=== PATIENT | female | born 1940 | race Caucasian/White ===

== ENCOUNTER 2020-08-16 20:51 | Outpatient (REF) | payer MEDICARE, OTHER, SELFPAY ==
[2020-08-16 21:28] LABS: Abs Immature Grans 0.03 10^3/uL (0.0-0.06); Absolute Basophil Count 0.01 10^3/uL (0.0-0.2); Absolute Eosinophil Count 0.01 10^3/uL (0.0-0.7); Absolute Lymphocyte Count 2.46 10^3/uL (1.2-3.4); Absolute Monocyte Count 0.33 10^3/uL (0.1-0.8); Absolute Neutrophil Count 1.03 10^3/uL (1.2-6.7); Basophils % 0.3; Eosinophils % 0.3; HCT 40.4 % (36.0-46.0); HGB 13.2 g/dL (11.2-15.7); Immature Grans % 0.8; Lymphocytes % 63.6; MCHC 32.7 % (32.0-36.0); MCV 97.8 fL (80-95); MPV 11.6 fL (8.0-11.0); Monocytes % 8.5; Neutrophils % 26.5; Nucleated RBC 0 %; Platelet Count 185 10^3/uL (130-400); RBC 4.13 10^6/uL (3.93-5.22); RDW 11.8 % (11.7-14.6); RDW-SD 42.3 fL; WBC 3.87 10^3/uL (4.4-10.8)
[2020-08-16 21:46] LABS: FREE T4 0.77 ng/dL (0.76-1.46); TSH 3.74 uIU/mL (0.36-3.74)
== END 2020-08-16 20:52 | disposition home or self-care (01) ==
LOC: LBN 20:51
PROVIDERS: Visit Provider Physician Assistant
DX: E53.8 Deficiency of other specified B group vitamins (principal); E03.9 Hypothyroidism, unspecified
CPT/HCPCS: 84439; 84443; 85025

== ENCOUNTER 2020-08-17 11:58 | Outpatient (CLI) | payer MEDICARE, OTHER, SELFPAY ==
--- NOTE | 2020-08-17 10:45 | DI.RAD_ITS ---
Exam(s) XR RIBS RT W PA LAT CHEST CLINICAL HISTORY: right anterior inferior rib pain, and c/o swelling M89.9 DISORDER OF BONE. COMPARISON: No exams were available for comparison FINDINGS: LUNGS:Mild chronic fibrotic changes, otherwise clear. No pleural abnormality seen. HEART: Normal. MEDIASTINUM: Normal. BONES: No displaced rib fracture is seen. No bony destructive lesion is seen. Biconvex thoracolumbar scoliosis. No compression fracture. Degenerative changes both shoulders. IMPRESSION: 1. Unremarkable radiographic appearance of the right ribs. 2. No acute pulmonary findings.
== END 2020-08-17 12:18 ==
PROVIDERS: Visit Provider Physician Assistant
DX: R07.81 Pleurodynia (principal); R22.2 Localized swelling, mass and lump, trunk; M89.9 Disorder of bone, unspecified
CPT/HCPCS: 71046; 71100

== ENCOUNTER 2020-09-25 03:57 | Outpatient (CLI) | payer MEDICARE, OTHER, SELFPAY ==
[2020-09-25 09:35] LABS: ALT 23 U/L (14-59); AST 15 U/L (15-37); Albumin 4.1 g/dL (3.4-5.0); Alkaline Phosphatase 40 U/L (46-116); Anion Gap 8.1 mmol/L (3-11); BUN 17 mg/dL (7-18); Bilirubin, Total 0.5 mg/dL (0.2-1.0); CO2 28.9 mmol/L (21.0-32.0); CREATININE 0.9 mg/dL (0.55-1.02); Calculated LDL 131 mg/dL (<100); Chloride 105 mmol/L (98-107); Cholesterol 232 mg/dL (<200); Glucose 99 mg/dL (74-106); HDL Cholesterol 89 mg/dL (40-60); Potassium 4.1 mmol/L (3.5-5.1); Sodium 142 mmol/L (136-145); TSH (W/Ref FT4) 4.47 uIU/mL (0.36-3.74); Total Protein 7.3 g/dL (6.4-8.2); Triglyceride 64 mg/dL (<150)
[2020-09-25 09:54] LABS: FREE T4 0.81 ng/dL (0.76-1.46)
== END 2020-09-25 03:58 | disposition home or self-care (01) ==
DX: E30.9 Disorder of puberty, unspecified (principal); G47.00 Insomnia, unspecified
CPT/HCPCS: 36415; 80053; 80061; 84439; 84443

== ENCOUNTER 2020-10-17 01:10 | Outpatient (CLI) | payer MEDICARE, OTHER, SELFPAY ==
--- NOTE | 2020-10-17 07:00 | DI.US_ITS ---
Exam(s) US ABDOMEN EXAM: US ABDOMEN CLINICAL HISTORY: RUQ abdominal discomfort, R10.11 TECHNIQUE: Ultrasound of complete upper abdomen performed using standard protocol. COMPARISON: No exams were available for comparison FINDINGS: There is no ascites evident. LIVER: There are no hepatic lesions evident nor obvious dilatation of intrahepatic ducts. GALLBLADDER/BILIARY: There are no gallstones. There is mild sludge. No gallbladder wall edema nor p ericholecystic fluid. The common hepatic duct isnot dilated, measuring 3-4mm at the level of kymberly hepatis. PANCREAS: There is no evidence of pancreatic mass nor dilatation of the pancreatic duct. SPLEEN: The spleen is not enlarged and there are no intrasplenic lesions evident. KIDNEYS:Kidneys exhibit normal size with no evidence of solid mass, calculus, nor hydronephrosis. The re is a parapelvic cyst in the right kidney which measures 2.3 x 1.8 x 1.9 cm. ABDOMINAL AORTA: Atherosclerotic but without aneurysmal dilatation. IVC: Normal diameter where visualized. IMPRESSION: 1. Mild sludge in the gallbladder but no shadowing gallstones. No gallbladder wall edema. Biliary tree is not dilated 2. Parapelvic cyst in the right kidney. No solid renal masses. No hydronephrosis 3. There is no ascites. DATA REPOSITORY:
--- NOTE | 2020-10-17 07:00 | DI.MAMMO_ITS ---
Exam(s) MAMMO SCREENING EXAM: MAMMO SCREENING CLINICAL HISTORY: screening, Z12.39. TECHNIQUE: Bilateral full field digital CC and MLO mammographic images were obtained with 3D tomosyn thesis and utilizing computer aided detection (CAD). COMPARISON: Prior outside mammogram performed August 2019 FINDINGS: There are no CAD designations There are no new spiculated masses nor malignant appearing microcalcification groups. There is no significant architectural distortion nor skin thickening-retraction. IMPRESSION: No radiographic evidence of malignancy. No significant change compared to the prior outside mammogram of August 2019 BI-RADS Category 1 - Negative Breast Density - Category C - Heterogeneously dense Breast density Category C or D implies that the patient has dense breast tissue. Dense breast tissue can make it harder to find cancer on a mammogram. Dense breast tissue is also associated with an incr eased risk of breast cancer. This information about the result of the mammogram report was provided to the patient to raise their awareness. Use this report when you speak with the patient about their risks for breast cancer, which includes their family history. At that time, you may recommend additional screening tests (Ultrasoun d or MRI) as these tests may add significant information. A negative radiographic report should not delay biopsy if a dominant or clinically suspicious mass is present. Up to ten percent of cancers are not identified on mammography. A negative report may reinforce clinical impression. Adenosis and dense breasts may obscure an underlying neoplasm. False positive reports average 6 to 10%. Patient will receive a letter notifying them of these results.
== END 2020-10-17 01:30 ==
DX: Z12.31 Encounter for screening mammogram for malignant neoplasm of breast (principal); R10.11 Right upper quadrant pain; N28.1 Cyst of kidney, acquired
CPT/HCPCS: 77063; 77067; 76700

== ENCOUNTER 2021-06-17 13:03 | Emergency (ER) | payer MEDICARE, OTHER, SELFPAY ==
[2021-06-17 13:18] VITALS: PULSE 71; RESP 16; TEMP 36.4; O2SAT 97
[2021-06-17 13:25] VITALS: BP 1212/76; PULSE 68; RESP 16; TEMP 36.6; O2SAT 97
--- NOTE | 2021-06-17 13:30 | RT.EKG_ITS ---
APPROVED REPORT Exam: Resting ECG Reason for Exam: shortness of breath Patient Location: E HR:63 bpm ECG Measurements Heart Rate 63 AXIS MA 189 P 44 QRSd 148 QRS 31 QT 440 T 60 QTc 450 Conclusion Sinus rhythm...normal P axis, V-rate 60- 99 Left bundle branch block...QRSd>120, broad/notched R
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
[2021-06-17 13:50] VITALS: RESP 16
[2021-06-17 13:51] LABS: BE (Venous) 5 mmol/L (-2-3); HCO3 (Venous) 30 mmol/L (23-28); O2 Sat (Venous) 47 %; TCO2 (Venous) 27 mmol/L (24-29); pCO2 (Venous) 48 mmHg (41-51); pO2 (Venous) 26 mmHg
[2021-06-17 13:52] LABS: Abs Immature Grans 0.05 10^3/uL (0.0-0.06); Absolute Basophil Count 0.01 10^3/uL (0.0-0.2); Absolute Lymphocyte Count 2.38 10^3/uL (1.2-3.4); Absolute Monocyte Count 0.31 10^3/uL (0.1-0.8); Absolute Neutrophil Count 1.05 10^3/uL (1.2-6.7); Basophils % 0.3; HCT 37.9 % (36.0-46.0); HGB 12.5 g/dL (11.2-15.7); Immature Grans % 1.3; Lymphocytes % 62.6; MCH 31.8 pg (27.0-33.0); MCV 96.4 fL (80-95); MPV 10.2 fL (8.0-11.0); Monocytes % 8.2; Neutrophils % 27.6; Platelet Count 181 10^3/uL (130-400); RBC 3.93 10^6/uL (3.93-5.22); RDW 11.9 % (11.7-14.6); RDW-SD 42.8 fL
--- NOTE | 2021-06-17 13:59 | DI.RAD_ITS ---
Exam(s) XR CHEST 2V PA LATERAL EXAM: XR CHEST 2V PA LATERAL CLINICAL HISTORY: shortness of breath TECHNIQUE: 2D digital imaging was performed of the chest. Two images were obtained. PA and lateral views were obtained. COMPARISON: CR XR RIBS RT W PA LAT CHEST from 08/17/2020 FINDINGS: MEDIASTINUM: Normal. HEART: Normal. PULMONARY VASCULATURE: Normal. LUNGS: The lungs appear hyperinflated suggesting underlying COPD. Mild fibrotic changes are seen in the lungs. PLEURAL SPACE: No pleural effusion or pneumothorax. BONE:Within normal limits for the patient's age. OTHER FINDINGS:Normal. IMPRESSION: No acute pulmonary findings. DATA REPOSITORY: RADIATION DOSE DELIVERED:
[2021-06-17 14:15] LABS: ALT 17 U/L (14-59); AST 16 U/L (15-37); Albumin 3.9 g/dL (3.4-5.0); Alkaline Phosphatase 45 U/L (46-116); Anion Gap 5.3 mmol/L (3-11); BUN 24 mg/dL (7-18); Bilirubin, Total 0.5 mg/dL (0.2-1.0); CO2 29.7 mmol/L (21.0-32.0); CREATININE 1.2 mg/dL (0.55-1.02); Calcium 8.8 mg/dL (8.5-10.1); Chloride 104 mmol/L (98-107); Estimated GFR 43.34 (mL/min/1.73m2); Glucose 105 mg/dL (74-106); Magnesium 2.2 mg/dL (1.8-2.4); NT-proBNP 56 pg/mL (<300); Potassium 3.9 mmol/L (3.5-5.1); Sodium 139 mmol/L (136-145); TSH (W/Ref FT4) 1.98 uIU/mL (0.36-3.74); Total Protein 7.2 g/dL (6.4-8.2); Troponin I < 50 ng/L (<or=60)
[2021-06-17 14:36] VITALS: PULSE 61; RESP 16; O2SAT 98
[2021-06-17 14:45] VITALS: BP 114/60
== END 2021-06-17 14:44 | disposition home or self-care (01) ==
PROVIDERS: Emergency Provider Emergency Medicine
DX: R06.02 Shortness of breath (principal); R42 Dizziness and giddiness; E03.9 Hypothyroidism, unspecified
CPT/HCPCS: 80053; 82805; 93005; 99284; 71046; 83735; 83880; 84443; 84484; 85025; 93010; 99283

== ENCOUNTER 2021-09-19 03:09 | Outpatient (CLI) | payer MEDICARE, OTHER, SELFPAY ==
[2021-09-19 08:31] LABS: ALT 31 U/L (14-59); AST 15 U/L (15-37); Albumin 4.2 g/dL (3.4-5.0); Alkaline Phosphatase 50 U/L (46-116); BUN 16 mg/dL (7-18); Bilirubin, Total 0.4 mg/dL (0.2-1.0); CREATININE 0.9 mg/dL (0.55-1.02); Calcium 9.3 mg/dL (8.5-10.1); Calculated LDL 128 mg/dL (<100); Chloride 105 mmol/L (98-107); Cholesterol 225 mg/dL (<200); Glucose 103 mg/dL (74-106); HDL Cholesterol 84 mg/dL (40-60); Sodium 141 mmol/L (136-145); TSH (W/Ref FT4) 1.73 uIU/mL (0.36-3.74); Total Protein 7.8 g/dL (6.4-8.2); Triglyceride 68 mg/dL (<150)
== END 2021-09-19 03:10 | disposition home or self-care (01) ==
LOC: LBO 03:09
DX: E78.5 Hyperlipidemia, unspecified (principal); F32.9 Major depressive disorder, single episode, unspecified; F41.9 Anxiety disorder, unspecified; R06.02 Shortness of breath; R42 Dizziness and giddiness; E03.9 Hypothyroidism, unspecified
CPT/HCPCS: 36415; 80053; 80061; 84443

== ENCOUNTER → 2021-10-01 00:32 | Outpatient (CLI) | payer MEDICARE, OTHER, SELFPAY ==
--- NOTE | 2021-10-01 07:45 | DI.NM_ITS ---
APPROVED REPORT Exam: Pharmacologic Patient Location: Out-Patient Room/Bed: Stress Nurse: Ryanne Mcqueen RN Ordering Provider:PHILIPP BRAVO, Contact Number: [phone] BMI: 20.59 Baseline Rhythm: Sinus Bradycardia, LBBB Indications: mild dyspnea on exertion, balance problem, lightheadedness, known BBB Medical History Medical History: LBBB, hyperglycemia, HLD, anxiety, DE OLIVEIRA, stroke, hypothyroidism, glaucoma Cardiac Medications: Magnesium Oxide, Levothyroxine Allergies: Epinephrine Cardiac Risk Factors: Family history, HLD Previous Cardiac Procedures: none Pretest Chest Pain Characteristics: none Exercise History: Physically active Physical Disabilities: None Lung Sounds: Clear to air bilaterally Heart Sounds: s1/s2 Stress Test Details Rest Stress HR Max Heart Rate (APMHR): 141.355049 bpm Target HR (85% APMHR): 119.974841 bpm BP ECG Clinical Rate Pressure Product: 0 Stress ECG Conclusion 1. The resting electrocardiogram showed a left bundle branch block. 2. Patient underwent a combination of testing with low-level exercise and pharmacologic stress with r egadenoson 3. The electrocardiographic portion of the test was nondiagnostic due to resting EKG abnormalities 4. Peak heart rate achieved was 90% of predicted for age 5. See MPI report Stress Test Summary STAGE HR BP SpO2 Symptoms NOTES Supine 58 144/72 Standing 65 148/78 1 min post Lexiscan injection 126 148/78 3 min post Lexiscan injection 128 144/62 6 min post Lexiscan injection 102 152/60 9 min post Lexiscan injection 88 122/64 Patient tolerated test well. MPI Conclusion Myocardial perfusion is normal without evidence of ischemia or prior infarction EF 70%, normal wall motion Radiologist Interpretation Radiologist agrees with Movie Shot Cameraman's Interpretation. Radiologist Interpretation by: Rowan Romero MD Interpretation Date/Time: 10/01/2021 16:35:40
[2021-10-01] MEDS: Regadenoson 0.4 MG/5 ML SYR IVP (13:35)
== END ==
DX: I44.7 Left bundle-branch block, unspecified (principal); R06.09 Other forms of dyspnea; R26.89 Other abnormalities of gait and mobility; R42 Dizziness and giddiness
CPT/HCPCS: 78452; 93016; 93018; 93017; J2785

== ENCOUNTER → 2021-10-18 00:04 | Outpatient (CLI) | payer MEDICARE, OTHER, SELFPAY ==
--- NOTE | 2021-10-18 07:15 | DI.MAMMO_ITS ---
Exam(s) MAMMO SCREENING EXAM: MAMMO SCREENING CLINICAL HISTORY: screening,z12.39. TECHNIQUE: Bilateral full field digital CC and MLO mammographic images were obtained with 3D tomosyn thesis and utilizing computer aided detection (CAD). COMPARISON: Prior mammograms were reviewed, the most recent being . FINDINGS: There are no new spiculated masses nor malignant appearing microcalcification groups. There is no significant architectural distortion nor skin thickening-retraction. IMPRESSION: No radiographic evidence of malignancy. BI-RADS Category 1 - Negative Breast Density - Category C - Heterogeneously dense Breast density Category C or D implies that the patient has dense breast tissue. Dense breast tissue can make it harder to find cancer on a mammogram. Dense breast tissue is also associated with an incr eased risk of breast cancer. This information about the result of the mammogram report was provided to the patient to raise their awareness. Use this report when you speak with the patient about their risks for breast cancer, which includes their family history. At that time, you may recommend additional screening tests (Ultrasoun d or MRI) as these tests may add significant information. A negative radiographic report should not delay biopsy if a dominant or clinically suspicious mass is present. Up to ten percent of cancers are not identified on mammography. A negative report may reinforce clinical impression. Adenosis and dense breasts may obscure an underlying neoplasm. False positive reports average 6 to 10%. Patient will receive a letter notifying them of these results.
== END ==
DX: Z12.31 Encounter for screening mammogram for malignant neoplasm of breast (principal)
CPT/HCPCS: 77063; 77067

== ENCOUNTER 2022-05-13 18:13 | Outpatient (CLI) | payer MEDICARE, OTHER, SELFPAY ==
--- NOTE | 2022-05-13 16:00 | DI.RAD_ITS ---
Exam(s) XR CERVICAL SPINE COMP 4-5V EXAM: XR CERVICAL SPINE COMP 4-5V CLINICAL HISTORY: pain M54.2 CERVICALGIA R26.81 UNSTEADINESS ON FEET. TECHNIQUE: 2D digital imaging was performed. Six images were obtained. AP, odontoid, lateral and yue ateral oblique images were obtained. COMPARISON: No exams were available for comparison FINDINGS: The odontoid is intact. The lateral masses are well aligned. There is normal alignment of the cervi cassandra spine. Disc space narrowing and endplate osteophytes are seen at C5-6 and C6-C7. No acute fractur e or subluxation is present. There is mild narrowing of the right C5-C6 neural foramen. The cervical thoracic junction is well maintained. The prevertebral soft tissues are unremarkable. Lung apices a re clear. IMPRESSION: Mild cervical spondylosis. DATA REPOSITORY: RADIATION DOSE DELIVERED:
== END 2022-05-13 18:33 ==
LOC: DI 18:14
PROVIDERS: PCP Nurse Practitioner Family; Visit Provider Nurse Practitioner Family
DX: R26.81 Unsteadiness on feet (principal); M50.322 Other cervical disc degeneration at C5-C6 level; M50.323 Other cervical disc degeneration at C6-C7 level; M47.812 Spondylosis without myelopathy or radiculopathy, cervical region
CPT/HCPCS: 72050

== ENCOUNTER 2022-06-13 00:37 | Outpatient (CLI) | payer MEDICARE, OTHER, SELFPAY ==
--- NOTE | 2022-06-13 06:45 | DI.MRI_ITS ---
Exam(s) MR CERVICAL SPINE WO EXAM: MR CERVICAL SPINE WO CLINICAL HISTORY: intermittent neck pain, unsteadiness, worsening,r26.81,m54.2 TECHNIQUE: Multiplanar multisequence MRI of the cervical spine was performed without intravenous con trast. COMPARISON: CR XR CERVICAL SPINE COMP 4-5V from 05/13/2022 FINDINGS: CERVICOMEDULLARY JUNCTION: Intact with no evidence of cerebellar tonsillar ectopia. No obvious abnor mality of the odontoid process. No evidence of Chiari 1 malformation. CERVICAL SPINAL CORD: There is no abnormal signal in the cervical spinal cord and no evidence of foca l cord atrophy nor focal cord swelling. OSSEOUS:There are no cervical fractures evident. No significant osseous lesions in the cervical vert ebrae. There are mild Modic type 1 sub endplate marrow edema changes on the inferior aspect of C5. INDIVIDUAL LEVELS: C2-3: No disc herniation nor central canal stenosis. No foraminal stenosis. Mild facet joint degener ative change on the right side. Left facet joint unremarkable. C3-4: No disc herniation nor central canal stenosis.Right facet joint unremarkable. Mild degenerativ e changes in the left facet joint. No obvious foraminal stenosis. C4-5: Normal disc height but there is a small central subligamentous disc protrusion which extends po steriorly 2 millimeters and is 5 millimeters wide. This slightly indents the thecal sac and slightly indents the anterior spinal cord. There is no abnormal signal in the cord at this level. Central c anal dimensions are lower normal. Disc protrusion does not extend into the exiting neural foramina w hich are patent. There are no prominent degenerative changes in the facet joints at this level. C5-6: This level exhibits chronic disc space narrowing and anterior osseous lipping. Modic type 1 mi ld sub endplate marrow edema changes in lower C5. No evidence of discitis. Small central subligamen tous disc bulge also noted at this level. There is mild central spinal canal stenosis. AP measureme nt of the canal is 8 mm. There are small bilateral Luschka joint osteophytes. However no prominent foraminal stenosis. Minimal facet degenerative changes at this level. C6-7: This level also exhibits chronic disc space narrowing and anterior osteophytes. There is subli gamentous annular bulging also noted at this level which flattens the thecal sac and contacts the spi nal cord. No abnormal signal in the cord. Mild central canal stenosis. No Luschka joint osteophyte s evident at this level. No significant foraminal stenosis. No facet arthropathy noted at this leve l. C7-T1: No disc herniation nor central canal stenosis. No facet arthropathy.No foraminal stenosis. IMPRESSION: 1. Chronic degenerative disc disease changes at C 5-6 and C6-7 levels with findings as described abov e at these levels. 2. There is also a small central subligamentous disc protrusion at C4-5 which slightly indents the th ecal sac and anterior aspect of the spinal cord at this level. 3. There is mild multilevel central spinal canal stenosis at these 3 levels. Small Luschka joint ost eophytes C5-6 level. There is no prominent foraminal stenosis on either side in the cervical spine. 4. There is no abnormal signal in the spinal cord nor evidence of cord swelling nor cord atrophy. DATA REPOSITORY:
--- NOTE | 2022-06-13 06:45 | DI.MRI_ITS ---
Exam(s) MR BRAIN WO EXAM: MR BRAIN WO CLINICAL HISTORY: acutely worse unsteadiness,h/o stroke,r26.81,z86.73 TECHNIQUE: Multiplanar multisequence MRI of the brain was performed. COMPARISON: No prior brain imaging studies in our PACS for comparison. FINDINGS: CEREBRAL PARENCHYMA: There is no evidence of intracranial hemorrhage, mass effect, or shift of midline structures. There are no extra-axial fluid collections. Ventricles are not enlarged or shifted. There is no significant focal signal abnormality in the cerebellar hemispheres nor within the nishant, m idbrain, and thalami. There is no abnormal signal abnormality in the periventricular white matter. On diffusion imaging there is mild increased signal in the anterior aspect of the midbrain between th e peduncles but without corresponding hypointensity on the ADC map and therefore questionable signifi cance with respect to ischemia. Amount of involutional change-atrophy is minimal. PITUITARY GLAND: No mass nor parasellar abnormality. No obvious abnormality in the cavernous sinuses. FLOW VOIDS: The expected flow void are noted. No evidence of obvious aneurysm nor obvious vascular ma lformation. PARANASAL SINUSES: None post inflammatory retention cyst in the posterior aspect of the left maxillar y sinus. No fluid level. ORBITS: No obvious findings. IMPRESSION: Minimal findings as described above. Also, no evidence to suggest prior infarct, as stated on the re quisition. DATA REPOSITORY:
== END 2022-06-13 00:57 ==
LOC: DI 00:38
PROVIDERS: PCP Nurse Practitioner Family; Visit Provider Nurse Practitioner Family
DX: M54.2 Cervicalgia (principal); R26.81 Unsteadiness on feet; Z86.73 Personal history of transient ischemic attack (TIA), and cerebral infarction without residual deficits
CPT/HCPCS: 70551; 72141

== ENCOUNTER 2022-07-14 07:15 | Outpatient (REF) | payer MEDICARE, OTHER, SELFPAY ==
[2022-07-17 13:28] LABS: Helicobacter pylori Ag, Feces Negative (Negative)
== END 2022-07-14 07:16 | disposition home or self-care (01) ==
LOC: LBN 07:15
PROVIDERS: PCP Nurse Practitioner Family; Visit Provider Nurse Practitioner Family
DX: R10.13 Epigastric pain (principal)
CPT/HCPCS: 87338

== ENCOUNTER → 2022-07-29 11:04 | Outpatient (BNVA) | payer MEDICARE, OTHER, SELFPAY | PROVIDERS: PCP Nurse Practitioner Family; Referring Provider Nurse Practitioner Family; Visit Provider Surgery | DX: K21.9 Gastro-esophageal reflux disease without esophagitis (principal) | CPT/HCPCS: 99213 ==

== ENCOUNTER 2022-08-06 06:50 | Day surgery (SDC) | payer MEDICARE, OTHER, SELFPAY ==
--- NOTE | 2022-08-06 06:24 | W.PM.PROGNOT ---
Date of Service Date of service: 08/06/22 Time of Service: 07:13 Assessment and Plan Assessment and plan (1) GERD (gastroesophageal reflux disease): Status: Chronic Assessment and plan: Ricky is doing well today. She has not had any new symptoms. She continues to have some early satiety although her reflux seems to be better controlled on the Pepcid 40 mg at nighttime. She has not had any new upper respiratory symptoms. We again reviewed the risks, benefits and complications of the procedure. She did not have any new questions or concerns and wished to proceed. Proceed with upper endoscopy under sedation with biopsies. Subjective Subjective Interval history since last seen: I saw Saranya in same-day surgery prior to her procedure today. She is doing well. She has not had any new complaints. She stopped the Carafate about a week ago and so far her symptoms have been controlled with the Pepcid 40 mg at nighttime. She still feels some early satiety. Her weight has been stable at 116 to 118 pounds. She has not had any upper respiratory symptoms since I saw her. Exam Const General: healthy appearing, comfortable and no acute distress Nutritional Appearance: thin Orientation: alert and oriented x3 HENMT Head: normocephalic and atraumatic Resp Effort & Inspection: normal respiratory effort Auscultation: clear to auscultation bilaterally Cardio Rate: regular rate Rhythm: regular rhythm GI Palpation: soft, no hepatosplenomegaly and nontender Time Spent with Patient Time Spent with Patient: <25 minutes Time was spent: preparing to see the patient(eg.review tests) and counseling the patient
--- NOTE | 2022-08-06 06:26 | ENDO_ITS ---
Date of service: 08/06/22 Time of Service: 09:25 Endoscopy Report DATE OF PROCEDURE: 08/06/22 PRE-OP DIAGNOSIS: Heart Burn, GERD POST-OP DIAGNOSIS: same PROCEDURE: EGD with biopsies SURGEON: Mora Anderson ANESTHESIA TYPE: General:No Airway ESTIMATED BLOOD LOSS: 3 PATHOLOGY: other (Bx of antrum, cardi and GE junction) COMPLICATIONS: None DISPOSITION: same day INDICATIONS: Donna is a pleasant 82-year-old female who has been having increase in reflux and heartburn type symptoms. She was started on Pepcid 40 mg daily as well as Carafate. She has now finished the Carafate and is doing somewhat better. She states that she has had some worsening symptoms on and off for many years. She is otherwise quite healthy 82-year-old who still runs at least 4 miles a day. I reviewed the risks, benefits and complications again in same-day surgery prior to the procedure. The patient did not have any questions understood the complication risk and wished to proceed. FINDINGS: There is moderate inflammation noted in the GE junction with some irregularity of the Z-line. No ulcerations were noted. No inflammation in the stomach. No abnormal polyps. PROCEDURE DESCRIPTION: After informed consent was obtained the patient was take to the procedure room and placed in a supine position. Monitors were applied and a time out was done. The patients name, date of , procedure type, allergies to medications and metal in their body was reviewed. A bite block was placed and the patient was sedated. Once sedated and comfortable the gastroscope was advanced through the oropharynx which was grossly normal into the esophagus. The proximal and mid- esophagus were normal. In the distal esophagus there was moderate inflammation noted. The scope was advanced into the stomach and through the pylorus into the 3rd portion of the duodenum. The duodenum was noted to be normal. The scope was retracted back into the stomach. No inflammation or ulcers were noted. Biopsies were done to rule out H. pylori. The scope was retroflexed. The cardia and fundus were noted to be normal. There was no hiatal hernia noted. The scope was retracted back into the esophagus and biopsies were done of the GE junction to rule out Archibald's. The Z line was irregular. There is an area that was no more than a centimeter long starting from the GE junction up. The GE junction was at 40 cm. The scope was removed and the patient was woken up and taken back to [facility] in stable condition. Follow up: I will increase the patient's Pepcid to 40 mg twice daily short-term for about 30 days and then come back down to 40 mg daily. I will give her a low acid diet to follow for the next couple of weeks until she sees me in the o ffice.
--- NOTE | 2022-08-06 06:28 | W.PM.DSUDISC ---
Date of service: 08/06/22 Time of Service: 09:18 Discharge Plan Disposition Patient Disposition: Home Condition: Stable Discharge Details Reason For Visit: Heart Burn, GERD Attending Provider: Mora Anderson Primary Care Provider: Jose J Maddox Home Meds and New Rx's Prescriptions: New famotidine 40 mg tablet 40 mg PO BID Qty: 60 0RF Continued calcium carbonate-vitamin D3 600 mg(1,500mg) -400 unit tablet 1 tab PO DAILY ibuprofen 200 mg capsule 200 - 400 mg PO Q6H PRN acetaminophen 500 mg capsule 500 mg PO Q6H PRN cyanocobalamin (vitamin B-12) 1,000 mcg capsule 1,000 mcg PO DAILY PRN hjrrhheu-llcmziw-yvwi-lutein Tablet 1 tab PO DAILY latanoprost 0.005 % drops 1 drp ophthalmic (eye) DAILY Patient Comments: INSTILL 1 DROP IN BOTH EYES AT BEDTIME (DME) Aerochamber MV Spacer See Rx Instructions .Route Qty: 1 0RF Rx Instructions: As directed levothyroxine 75 mcg tablet 75 mcg PO DAILY Qty: 90 4RF Discontinued famotidine 40 mg tablet 40 mg PO DAILY Qty: 90 0RF sucralfate 1 gram tablet 1 g PO QACHS Qty: 120 0RF Discharge Instructions Instructions: Diet for Stomach Ulcers and Gastritis (ED), GERD (Gastroesophageal Reflux Disease) (DC) Additional Instructions: Findings: inflammation at the junction of the esophagus and stomach, consistent with reflux medications: Please increase the Pepcid to 2 x a day Follow up: 2 weeks Please call if you develop: fevers >101.5 Nausea or Vomiting Abdominal pain that is not transient Rectal bleeding that is more then a tbsp A hard abdomen and inability to pass gas Shortness of breath DAY SURGERY UNIT POST ENDOSCOPY INSTRUCTIONS Instructions for everyone who is given Anesthesia: For your safety, please do the following for the next 24 Hours: a. Do not drive or operate dangerous equipment b. Do not drink alcohol beverages or use any recreational drugs for the first 24 hours or while taking pain medications. The medications in your body may have a reaction that can be dangerous. c. Do not make any important decisions or sign any important papers 1. Generally there are no restrictions on your activity after a day or so has gone by, but you may feel a bit fatigued for a few days. 2. After you arrive home you may have a light meal and return to a normal diet as you can tolerate it without feeling sick to your stomach. 3. After surgery, you may feel pain or discomfort. This should be only transient, but if it persists please contact your doctor. 4. If there are any questions regarding the findings of your procedure, please feel free to contact your doctor. 6. If you are unable to contact your doctor with a problem, contact the hospital at [phone]. 7. Continue all your regular medications unless directed otherwise. I understand the above instructions and have no questions. Signature of Patient or Responsible Adult Escort Date/Time Name of Responsible Adult Escort Signature of Nurse Date/Time Activity:: Activity as Tolerated Diet:: low acid Discharge Orders Discharge Orders: Discharge Order (Routine); Ordered 08/06/22 Ordered By: Mora Anderson DS: Diagnosis Discharge Diagnosis (1) GERD (gastroesophageal reflux disease): Status: Chronic Asessment and Plan: Patient is seen and examined after their endoscopy. Patient has no sore throat. They have been able to tolerate liquids. They do not have any Nausea or Vomiting. They are not having any chest pain or shortness of breath. They have been able to pass gas and are not having any abdominal pain or distention. they have not vomited any blood. The vital signs have been stable-see nursing notes. We discussed findings on their endoscopy We reviewed the importance of lifestyle modifications- see diet recommendations We reviewed any new medications that the patient may be prescribed- see medicine reconciliation. Patient will either be sent a letter with the biopsy results or follow up in the office- see discharge instructions Patient was given explicit instructions for emergency follow up post endoscopy- see discharge instructions Patient verbalized understanding and was discharged in stable and satisfactory condition. See nursing notes.
[2022-08-06 07:15] VITALS: BP 112/64; PULSE 69; RESP 17; TEMP 36.6; O2SAT 98
[2022-08-06] MEDS: Lactated Ringers 1,000 ML 80 ML IV (07:26)
--- NOTE | 2022-08-06 07:47 | ANES.PREOP_ITS ---
General Info Date of Service Date Performed: 08/06/22 Height: 5 ft 4 in Weight: 52.9 kg Body Mass Index (BMI): 20.0 Surgical Procedure: Operation Date: 08/06/22 08:05 Proposed Procedure Side Surgeon p Gastroscopy Mora Anderson MD Meds Allergies and Home Medications Allergies Allergy/AdvReac Type Severity Reaction Status Date / Time epinephrine AdvReac Intermediate Tachycardia Verified 08/06/22 07:09 versed Allergy Severe Uncoded 08/06/22 07:09 Home Medication Medication Instructions Recorded acetaminophen 500 mg capsule 500 mg PO Q6H PRN 03/06/20 calcium carbonate 600 mg-vitamin 1 tab PO DAILY 03/06/20 D3 10 mcg (400 unit) tablet ibuprofen 200 mg capsule 200 - 400 mg PO Q6H PRN 03/06/20 latanoprost 0.005 % eye drops 1 drp ophthalmic (eye) DAILY 10/04/21 dfnvvkux-adteceg-udwt-lutein tablet 1 tab PO DAILY 10/04/21 levothyroxine 75 mcg tablet 75 mcg PO DAILY #90 tabs 03/14/22 inhalational spacing device #1 ea 05/26/22 (Aerochamber MV spacer) famotidine 40 mg tablet 40 mg PO DAILY #90 tabs 07/11/22 sucralfate 1 gram tablet 1 g PO QACHS #120 tabs 07/11/22 cyanocobalamin (vitamin B-12) 1,000 mcg PO DAILY PRN 07/29/22 1,000 mcg capsule Current Visit Medications: Current Medications Generic Name Dose Route Start Last Admin Trade Name Freq PRN Reason Stop Dose Admin Ringer's Solution 1,000 mls @ 80 mls/hr 08/06/22 06:00 08/06/22 07:26 IV 09/04/22 23:59 80 mls/hr INFUSION FRANKLIN Administration IV Miscellaneous Supplies 1 each 08/06/22 06:00 Iv Access IV 09/04/22 23:59 DIRECTED FRANKLIN Ondansetron HCl 4 mg 08/06/22 06:28 Ondansetron 4 Mg/2 Ml Vial IVP 09/05/22 06:27 Q4H PRN PRN Nausea / Vomiting Sodium Chloride 0 ml 08/06/22 06:00 Normal Saline Flush 10 Ml Syr IV 09/04/22 23:59 PRN PRN Sodium Chloride 0 ml 08/06/22 06:00 Normal Saline 10 Ml Vial IJ 09/04/22 23:59 DIRECTED PRN Sterile Water 0 ml 08/06/22 06:00 Water,Injection,Sterile 10 Ml Vial IJ 09/04/22 23:59 DIRECTED PRN PFSH Active Problems Active Problems: Problem Status Onset Code Hypothyroidism E03.9 Hyperlipidemia E78.5 Vitamin D deficiency E55.9 Block, bundle branch, left ~03/16/19 I44.7 Epicondylitis, lateral, left ~03/16/19 M77.12 H/O: stroke ~05/2014 Z86.73 Lumbosacral spondylosis without myelopathy M47.817 Osteopenia M85.80 Anxiety and depression F41.9, F32.9 Glaucoma H40.9 Advanced directives, counseling/discussion Z71.89 DNR (do not resuscitate) Z66 History of basal cell carcinoma (BCC) Z85.828 Colon cancer screening Z12.11 Light headedness R42 Balance disorder R26.89 Neck pain M54.2 Unsteady gait R26.81 GERD (gastroesophageal reflux disease) K21.9 Epigastric pain R10.13 Medical History Medical History Abdominal pain, RUQ Dehydration after exertion Dyspnea on exertion Encounter for screening for other viral diseases Hyperglycemia Insomnia due to stress Rib pain on right side Surgical History Surgical History History of colonoscopy Tobacco Smoking/Tobacco Use Status: Never Passive smoking exposure: Yes Second hand exposure: Yes Alcohol Alcohol Intake: current Alcohol intake frequency: a few times a week Alcohol type: wine and hard liquor Substance Use Substance use: Never Substance use type: does not use Vital Signs and Lab Results Vital Signs Most Recent Vital Signs in EMR: Most Recent Vital Signs Temp Pulse Resp BP Pulse Ox 36.6 C 69 17 112/64 98 08/06/22 07:15 08/06/22 07:15 08/06/22 07:15 08/06/22 07:15 08/06/22 07:15 Lab Results Blood Type / Crossmatch: No Data to Display Complete Blood Count: No Data to Display Complete Metabolic Panel: No Data to Display Liver Function Panel: No Data to Display Coagulation Panel: No Data to Display Cardiac Panel: No Data to Display Arterial Blood Gas: No Data to Display Venous Blood Gas: No Data to Display Pancreas Panel: No Data to Display Thyroid Panel: No Data to Display Infectious Disease: No Data to Display Blood Cultures: No Data to Display Toxicology Panel: No Data to Display Imaging and Studies Imaging and Studies Study information below may be from another EMR and interpreted by another provider. Please see original notes in EMR for more complete details. EKG Summary: 06/17/21: Exam: Resting ECG Reason for Exam: shortness of breath Patient Location: E HR:63 bpm ECG Measurements Heart Rate 63 AXIS MS 189 P 44 QRSd 148 QRS 31 QT 440 T60 QTc 450 Conclusion Sinus rhythm...normal P axis, V-rate 60- 99 Left bundle branch block...QRSd>120, broad/notched R Stress Test Summary: 10/01/21: Stress ECG Conclusion 1. The resting electrocardiogram showed a left bundle branch block. 2. Patient underwent a combination of testing with low-level exercise and pharmacologic stress with regadenoson 3. The electrocardiographic portion of the test was nondiagnostic due to resting EKG abnormalities 4. Peak heart rate achieved was 90% of predicted for age 5. See MPI report Stress Test Summary [id number] [id number]/78 1 min post Lexiscan [id number]/78 3 min post Lexiscan xssdzvvut730802/62 6 min post Lexiscan [id number]/60 9 min post Lexiscan cmohiaozg19418/64 Patient tolerated test well. MPI Conclusion Myocardial perfusion is normal without evidence of ischemia or prior infarction EF 70%, normal wall motion Radiologist Interpretation Radiologist agrees with Marketing Traffic Manager's Interpretation. Radiologist Interpretation by: Rowan Romero MD Interpretation Date/Time: 10/01/2021 16:35:40 Anesthesia Assessment and Plan Anesthesia History Personal History: Delayed Emergence Family History: No Family History of Anesthesia Complications Exercise Tolerance Exercise Tolerance: Metabolic Equivalents>4 Cardiac & Pulmonary Exam Cardiac Exam: Normal S1/S2 Heart Sounds Pulmonary Exam: Clear Bilateral Breath Sounds Implantable Cardiac Device Does patient have a Pacemaker or an ICD?: No Airway Exam Known Difficult Airway: No Mallampati Class: 1 Mouth Opening: Normal (> 3cm) Thyromental Distance: Greater than 3 cm Facial Hair: Full Nix Neck Range of Motion: Full ROM Neck Circumference: Normal Teeth Condition: Normal Dentition ASA Classification ASA Score: ASA 3 Emergency Case?: No NPO Status NPO Status: NPO Clears >2 hours, Solids >8 hours Anesthesia Plan Resuscitation Status: Full Code Anesthesia Technique: General Anesthesia Airway Planned: Natural Airway Monitors Used: Standard Monitors
--- NOTE | 2022-08-06 08:12 | STOM_PTH ---
PATIENT: Saranya Leyva LOC: [facility] U#:[id number] AGE/SX: 82/F ROOM: RE08/06/[address]: Mora Anderson MD : 1940 BED: DIS: 08/06/2022 SPEC #: [id number] RECD: 08/06/22 10:30 STATUS: EDYTA BENJAMIN #: [id number] MARIAH: 08/06/22 08:[address]: Mora Anderson DEPT: Surgical Specimen RECD BY: Tiffanie Diamond ENTERED: 08/06/22 10:32 SP TYPE: STOMACH OTHR DR: Jose J Buckner, FREDO Tissues: 1 - STOMACH BIOPSY 2 - STOMACH BIOPSY 3 - ESOPHAGUS BIOPSY 4 - ESOPHAGUS BIOPSY Procedures: GROSS AND MICRO LEVEL 4 Comments: [id number]
[2022-08-06 08:23] VITALS: BP 93/62; PULSE 70; RESP 17; TEMP 36.5; O2SAT 98
--- NOTE | 2022-08-06 08:31 | W.ANESPOSTOP ---
Postoperative Evaluation Date, Time and Location Date Performed: 08/06/22 Time Performed: 08:30 Patient Location: Day Surgery Unit Vital Signs Most Recent Imported Vital Signs: Most Recent Vital Signs Temp Pulse Resp BP Pulse Ox 36.6 C 69 17 112/64 98 08/06/22 07:15 08/06/22 07:15 08/06/22 07:15 08/06/22 07:15 08/06/22 07:15 Pain Score Most Recent Pain Score: Most Recent Pain Score Pain Level 0 08/06/22 07:15 Assessment Mental Status: Awake (Alert & Oriented to Patient Baseline) Airway and Respiratory Function: Patent airway with normal (patient baseline) respiratory exam Cardiovascular Function: Hemodynamically Stable Hydration Status: Adequately Hydrated Nausea & Vomiting: No Nausea or Vomiting Pain: Pt. Denies Any Pain Peripheral Nerve Block: Patient did not receive a nerve block
[2022-08-06 08:50] VITALS: BP 121/60; PULSE 64; RESP 17; TEMP 36.6; O2SAT 100
[2022-08-06] MEDS: Normal Saline Flush 10 ML SYR IV (08:58)
== END 2022-08-06 09:36 | disposition home or self-care (01) ==
PROVIDERS: PCP Nurse Practitioner Family; Visit Provider Surgery
PROC: 0DJ68ZZ Inspection of Stomach, Via Natural or Artificial Opening Endoscopic (ICD-10-PCS; CPT 43235; principal; 2022-08-06 08:00)
DX: K21.9 Gastro-esophageal reflux disease without esophagitis (principal); K22.89 Other specified disease of esophagus
CPT/HCPCS: 43239; 88305; J2704

== ENCOUNTER → 2022-08-18 13:09 | Outpatient (BNVA) | payer MEDICARE, OTHER, SELFPAY | PROVIDERS: PCP Nurse Practitioner Family; Referring Provider Nurse Practitioner Family; Visit Provider Surgery | DX: Z48.815 Encounter for surgical aftercare following surgery on the digestive system (principal); K21.9 Gastro-esophageal reflux disease without esophagitis | CPT/HCPCS: 99212; 99213 ==

== ENCOUNTER 2022-10-07 09:08 | Outpatient (CLI) | payer MEDICARE, SELFPAY ==
--- NOTE | 2022-10-07 09:00 | RT.EKG_ITS ---
APPROVED REPORT Exam: Resting ECG Reason for Exam: Pre-op examination Patient Location: O HR:53 bpm ECG Measurements Heart Rate 53 AXIS AK 177 P 55 QRSd 147 QRS 6 QT 457 T 65 QTc 430 Conclusion Sinus rhythm...normal P axis, V-rate 50- 99 Left bundle branch block...QRSd>120, broad/notched R
== END 2022-10-07 09:09 | disposition home or self-care (01) ==
LOC: DI.CM 09:09
PROVIDERS: PCP Nurse Practitioner Family; Visit Provider Nurse Practitioner Family
DX: Z01.818 Encounter for other preprocedural examination (principal)
CPT/HCPCS: 93010

== ENCOUNTER 2022-10-13 04:32 | Outpatient (CLI) | payer MEDICARE, SELFPAY ==
[2022-10-13 07:15] LABS: HCT 41.4 % (36.0-46.0); HGB 13.3 g/dL (11.2-15.7); MCH 30.4 pg (27.0-33.0); MCHC 32.1 % (32.0-36.0); MCV 95 fL (80-95); MPV 10.2 fL (8.0-11.0); Platelet Count 183 10^3/uL (130-400); RBC 4.38 10^6/uL (3.93-5.22); RDW 11.8 % (11.7-14.6); RDW-SD 40.9 fL; WBC 3.52 10^3/uL (4.4-10.8)
[2022-10-13 08:00] LABS: ALT 20 U/L (14-59); AST 22 U/L (15-37); Albumin 3.9 g/dL (3.4-5.0); Alkaline Phosphatase 54 U/L (46-116); Anion Gap 6.8 mmol/L (3-11); BUN 13 mg/dL (7-18); Bilirubin, Total 0.7 mg/dL (0.2-1.0); CO2 30.2 mmol/L (21.0-32.0); CREATININE 0.8 mg/dL (0.55-1.02); Calcium 9.2 mg/dL (8.5-10.1); Chloride 104 mmol/L (98-107); Estimated GFR 74.44 (mL/min/1.73m2); Glucose 105 mg/dL (74-106); Sodium 141 mmol/L (136-145); Total Protein 7.4 g/dL (6.4-8.2)
[2022-10-13 08:15] LABS: Vitamin D 25 Total 43.3 ng/mL (30-100)
== END 2022-10-13 04:33 | disposition home or self-care (01) ==
LOC: LBO 04:32
PROVIDERS: PCP Nurse Practitioner Family; Visit Provider Nurse Practitioner Family
DX: E03.9 Hypothyroidism, unspecified (principal); E78.5 Hyperlipidemia, unspecified; E55.9 Vitamin D deficiency, unspecified
CPT/HCPCS: 36415; 80053; 82306; 85027; 84443

== ENCOUNTER → 2022-11-06 01:07 | Outpatient (CLI) | payer MEDICARE, SELFPAY ==
--- NOTE | 2022-11-06 07:10 | DI.DEXA_ITS ---
Exam(s) XR DEXA BONE DENSITY W/WO LULI EXAM: XR DEXA BONE DENSITY W/WO LULI CLINICAL HISTORY: screening for osteoporosis in postmenopausal woman,z78.0, TECHNIQUE: Routine DEXA evaluation of the lumbar spine, hip, or forearm. COMPARISON: No exams were available for comparison FINDINGS: Performed on a Hologic unit. Lateral image: No compression fracture evident. Lumbar Spine total T-score: -1.6 Hip total T-score:-0.1 Independent reading at the level of the femoral neck yields T-score of -0.8 Forearm total T-score: -1.3 IMPRESSION: Bone mineral density measures in the osteopenia range. Fracture risk is moderate. Note: Any spine fracture indicates 5x risk for subsequent spine fracture and 2x risk for subsequent h ip fracture. World Health Organization criteria for BMD interpretation classify patients: Normal...... T- Score at or above -1.0 Osteopenic... T- Score between -1.0 and -2.5 Osteoporosis... T-Score at or below -2.5
== END ==
PROVIDERS: PCP Nurse Practitioner Family; Visit Provider Nurse Practitioner Family
DX: Z13.820 Encounter for screening for osteoporosis (principal); Z78.0 Asymptomatic menopausal state
CPT/HCPCS: 77080

== ENCOUNTER 2023-03-10 10:47 | Emergency (ER) | payer MEDICARE, SELFPAY ==
[2023-03-10 10:51] VITALS: BP 122/53; PULSE 60; RESP 16; TEMP 36.2; O2SAT 100
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
--- NOTE | 2023-03-10 11:30 | DI.RAD_ITS ---
Exam(s) XR KNEE RT 3V AP,LAT,ILANA EXAM: XR KNEE RT 3V AP,LAT,ILANA CLINICAL HISTORY: R knee pain. TECHNIQUE: 2D digital imaging was performed. COMPARISON: No exams were available for comparison FINDINGS: 3 views There is no evidence of acute fracture but there is a joint effusion signifying internal derangement. There is no degenerative narrowing nor osteophytes. Bone density is normal. No osseous lesions. IMPRESSION: No significant osseous findings but there is a knee joint effusion evident DATA REPOSITORY: RADIATION DOSE DELIVERED:
[2023-03-10 12:28] VITALS: BP 122/53; PULSE 60; RESP 16; TEMP 36.2; O2SAT 100
== END 2023-03-10 12:35 | disposition home or self-care (01) ==
PROVIDERS: Emergency Provider Physician Assistant; PCP Nurse Practitioner Family
DX: M25.561 Pain in right knee (principal); M25.461 Effusion, right knee; M23.91 Unspecified internal derangement of right knee; Z86.73 Personal history of transient ischemic attack (TIA), and cerebral infarction without residual deficits
CPT/HCPCS: 73562; 99283

== ENCOUNTER → 2023-03-13 07:43 | Outpatient (BNVA) | payer MEDICARE, SELFPAY | PROVIDERS: PCP Nurse Practitioner Family; Referring Provider Nurse Practitioner Family | DX: M23.91 Unspecified internal derangement of right knee (principal) | CPT/HCPCS: 99213 ==

== ENCOUNTER → 2023-03-27 01:07 | Outpatient (CLI) | payer MEDICARE, SELFPAY ==
--- NOTE | 2023-03-27 07:30 | DI.MRI_ITS ---
Exam(s) MR LOWER JOINT RT WO EXAM: MR LOWER JOINT RT WO CLINICAL HISTORY: ? MENISCAL TEAR,internal derangement rt knee. TECHNIQUE: Multiplanar multisequence MRI was performed. COMPARISON: CR XR KNEE RT 3V AP,LAT,ILANA from 03/10/2023 FINDINGS: BONES: There is no fracture or contusion pattern. JOINTS: There is mild thinning of the cartilage seen in both the medial lateral femoral condyle media l lateral femoral tibial joint. The hyperintense signal within the cartilage of the lateral femoral condyle extends to the articular surface. However, there is normal subchondral marrow signal. There is a small to moderate joint effusion. TENDONS: Extensor mechanism: Unremarkable. Medial retinaculum: Unremarkable. Lateral retinaculum: Unremarkable. Popliteus: Unremarkable. MUSCLES: Unremarkable. MENISCI: Globular intermediate signal seen in the body of the medial meniscus consistent with degener ation. Similar signals also seen in the body of the lateral meniscus. There is decrease in size and intermediate signal seen within the anterior horn of the lateral meniscus suspicious for degeneratio n. SOFT TISSUES: Unremarkable. LIGAMENTS: Anterior Cruciate: Unremarkable. Posterior Cruciate: Unremarkable. Medial Collateral:Unremarkable. Lateral Collateral: Unremarkable. OTHER: IMPRESSION: 1. Degenerative changes seen in both the medial lateral menisci. 2. No evidence of a ligament tear. 3. Moderate joint effusion. 4. 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 DATA REPOSITORY:
== END ==
PROVIDERS: PCP Nurse Practitioner Family; Visit Provider Physician Assistant
DX: M17.11 Unilateral primary osteoarthritis, right knee (principal); M94.28 Chondromalacia, other site
CPT/HCPCS: 73721

== ENCOUNTER → 2023-03-30 14:39 | Outpatient (BNVA) | payer MEDICARE, SELFPAY | PROVIDERS: PCP Nurse Practitioner Family; Referring Provider Nurse Practitioner Family; Visit Provider Student in an Organized Health Care Education/Training Program | DX: M23.91 Unspecified internal derangement of right knee (principal) | CPT/HCPCS: 99214 ==

== ENCOUNTER 2023-05-20 13:57 | Outpatient (REF) | payer MEDICARE, SELFPAY ==
[2023-05-20 15:37] LABS: HCT 42.2 % (36.0-46.0); HGB 14.1 g/dL (11.2-15.7); MCH 31.1 pg (27.0-33.0); MCHC 33.4 % (32.0-36.0); MCV 93 fL (80-95); MPV 11.6 fL (8.0-11.0); Platelet Count 227 10^3/uL (130-400); RBC 4.53 10^6/uL (3.93-5.22); RDW 12.1 % (11.7-14.6); RDW-SD 41.8 fL; WBC 3.79 10^3/uL (4.4-10.8)
[2023-05-20 16:57] LABS: ALT 26 U/L (14-59); AST 22 U/L (15-37); Albumin 4.4 g/dL (3.4-5.0); Alkaline Phosphatase 60 U/L (46-116); Anion Gap 10.1 mmol/L (3-11); BUN 18 mg/dL (7-18); Bilirubin, Total 0.5 mg/dL (0.2-1.0); CO2 26.9 mmol/L (21.0-32.0); Calcium 9.5 mg/dL (8.5-10.1); Chloride 101 mmol/L (98-107); Glucose 94 mg/dL (74-106); Sodium 138 mmol/L (136-145); Total Protein 7.9 g/dL (6.4-8.2); Vitamin B12 739 pg/mL (193-986)
[2023-05-20 16:58] LABS: Folate > 20.0 ng/mL (8.6-20.0)
== END 2023-05-20 13:58 | disposition home or self-care (01) ==
LOC: LBN 13:57
PROVIDERS: PCP Nurse Practitioner Family; Visit Provider Nurse Practitioner Family
DX: D75.89 Other specified diseases of blood and blood-forming organs (principal); R17 Unspecified jaundice
CPT/HCPCS: 80053; 85027; 82607; 82746

== ENCOUNTER 2023-07-30 10:00 | Outpatient (CLI) | payer MEDICARE, SELFPAY ==
--- NOTE | 2023-07-30 10:00 | RT.EKG_ITS ---
APPROVED REPORT Exam: Resting ECG Reason for Exam: TIA Patient Location: O HR:55 bpm ECG Measurements Heart Rate 55 AXIS IA 167 P 41 QRSd 147 QRS 5 QT 474 T 59 QTc 454 Conclusion Sinus rhythm...normal P axis, V-rate 50- 99 Left bundle branch block...QRSd>120, broad/notched R
== END 2023-07-30 10:01 | disposition home or self-care (01) ==
LOC: DI.CM 10:01
PROVIDERS: PCP Nurse Practitioner Family; Visit Provider Nurse Practitioner Family
DX: I48.91 Unspecified atrial fibrillation (principal)
CPT/HCPCS: 93010

== ENCOUNTER → 2023-07-31 02:05 | Outpatient (CLI) | payer MEDICARE, SELFPAY ==
--- NOTE | 2023-07-31 07:15 | DI.US_ITS ---
Exam(s) US CAROTID EXAM: US CAROTID CLINICAL HISTORY: TIA, G45.9. TECHNIQUE: Ultrasound carotids performed using grayscale, color-flow, and spectral Doppler imaging. COMPARISON: No exams were available for comparison FINDINGS: RIGHT CAROTID ARTERY: Plaque: Mild calcific plaque seen in the carotid bulb. Velocity elevation: None. LEFT CAROTID ARTERY: Plaque: Mild calcific plaque seen in the carotid bulb. Velocity elevation: None. VERTEBRAL ARTERIES: Antegrade flow. Measurements: R Bulb: 43.8cm/s PS / 11.5cm/s ED R CCA: 59.4cm/s PS / 16.7cm/s ED R ECA: 69.7cm/s PS / 9.7cm/s ED R ICA Prox: 72.6cm/s PS / 22.9cm/s ED R ICA Mid: 69cm/s PS / 28.5cm/s ED R ICA Distal: 76.2cm/s PS /27.2cm/s ED R Vert: 35.9cm/s PS / 14.3cm/s ED R SVR: 1.3 R DVR: 1.6 L Bulb: 51.8cm/s PS / 10.3cm/s ED L CCA: 62.1cm/s PS / 15.9cm/s ED L ECA: 65.1cm/s PS / 8.9cm/s ED L ICA Prox: 69.1cm/s PS / 25cm/s ED L ICA Mid: 78.6cm/s PS / 24.6cm/s ED L ICA Distal: 97.8cm/s PS / 37.8cm/s ED L Vert: 45.6cm/s PS / 13.7cm/s ED L SVR: 1.6 L DVR: 2.4 IMPRESSION: No evidence for hemodynamically significant carotid stenosis. Criteria for Carotid Stenosis: Normal: ICA PSV <125 cm/s no plaque or intimal thickening is visible. <50% stenosis: ICA PSV <125 cm/s and plaque or intimal thickening is visible. 50-69% stenosis: ICA PSV is 125-250 cm/s and plaque is visible. >70% stenosis to near occlusion: ICA PSV >250 cm/s with visible plaque and luminal narrowing. DATA REPOSITORY:
== END ==
PROVIDERS: PCP Nurse Practitioner Family; Visit Provider Nurse Practitioner Family
DX: G45.9 Transient cerebral ischemic attack, unspecified (principal)
CPT/HCPCS: 93880

== ENCOUNTER 2023-08-10 07:48 | Outpatient (CLI) | payer MEDICARE, SELFPAY ==
--- NOTE | 2023-08-10 08:59 | W.CARDEVENT ---
Date of service: 08/10/23 Time of Service: 09:00 Cardiac Event Recorder Referring Provider:: Jose J Ackerman Indications:: TIA Cardiac Event Note: This is a cardiac event monitor. Patient was monitored for 1 day and 15 hours Rhythm throughout was sinus with an average heart rate of 78. Minimum was 61, maximum 136 There were no significant ventricular or supraventricular dysrhythmias. There was no atrial fibrillation
== END 2023-08-10 07:49 | disposition home or self-care (01) ==
LOC: CARDOPNVT 07:48
PROVIDERS: PCP Nurse Practitioner Family; Visit Provider Internal Medicine Cardiovascular Disease
DX: G45.9 Transient cerebral ischemic attack, unspecified (principal)
CPT/HCPCS: 93272

== ENCOUNTER → 2023-09-09 14:40 | Outpatient (BNVA) | payer MEDICARE, SELFPAY | PROVIDERS: PCP Nurse Practitioner Family; Referring Provider Nurse Practitioner Family; Visit Provider Psychiatry & Neurology Neurology | DX: G45.9 Transient cerebral ischemic attack, unspecified (principal); Z86.73 Personal history of transient ischemic attack (TIA), and cerebral infarction without residual deficits | CPT/HCPCS: 99215 ==

== ENCOUNTER 2023-10-13 02:10 | Outpatient (CLI) | payer MEDICARE, SELFPAY ==
[2023-10-13 13:00] LABS: ALT 31 U/L (14-59); AST 25 U/L (15-37); Albumin 4.1 g/dL (3.4-5.0); Alkaline Phosphatase 77 U/L (46-116); Anion Gap 9.4 mmol/L (3-11); BUN 14 mg/dL (7-18); Bilirubin, Total 0.58 mg/dL (0.2-1.0); CO2 28.6 mmol/L (21.0-32.0); CREATININE 0.9 mg/dL (0.55-1.02); Calcium 9.5 mg/dL (8.5-10.1); Calculated LDL 62 mg/dL (<100); Chloride 104 mmol/L (98-107); Cholesterol 157 mg/dL (<200); Estimated GFR 64.23 (mL/min/1.73m2); Glucose 103 mg/dL (74-106); HDL Cholesterol 88 mg/dL (40-60); Sodium 142 mmol/L (136-145); TSH (W/Ref FT4) 2.16 uIU/mL (0.36-3.74); Total Protein 7.9 g/dL (6.4-8.2); Triglyceride 38 mg/dL (<150)
== END 2023-10-13 02:11 | disposition home or self-care (01) ==
LOC: LOS 02:10
PROVIDERS: PCP Nurse Practitioner Family; Visit Provider Nurse Practitioner Family
DX: E03.9 Hypothyroidism, unspecified (principal); E78.5 Hyperlipidemia, unspecified
CPT/HCPCS: 36415; 80053; 80061; 84443

== ENCOUNTER → 2023-12-01 07:44 | Outpatient (BNVA) | payer MEDICARE, SELFPAY | PROVIDERS: PCP Nurse Practitioner Family; Referring Provider Nurse Practitioner Family; Visit Provider Surgery | DX: Z12.11 Encounter for screening for malignant neoplasm of colon (principal) ==

== ENCOUNTER 2023-12-21 07:29 | Day surgery (SDC) | payer MEDICARE, SELFPAY ==
--- NOTE | 2023-12-20 15:33 | W.PM.DSUDISC ---
Date of service: 12/21/23 Time of Service: 08:37 Discharge Plan Disposition Patient Disposition: Home Condition: Good Discharge Details Reason For Visit: screening colonoscopy Attending Provider: Yandel Melendrez Primary Care Provider: Jose J Maddox Home Meds and New Rx's Prescriptions: Continued calcium carbonate-vitamin D3 600 mg(1,500mg) -400 unit tablet 1 tab PO DAILY ibuprofen 200 mg capsule 200 - 400 mg PO Q6H PRN acetaminophen 500 mg capsule 500 mg PO Q6H PRN atorvastatin 40 mg tablet 40 mg PO QHS Qty: 90 1RF aspirin 81 mg tablet,delayed release (DR/EC) 81 mg PO DAILY Qty: 90 4RF ekeymksg-sjyqevm-nuws-lutein Tablet 1 tab PO DAILY latanoprost 0.005 % drops 1 drp ophthalmic (eye) DAILY Patient Comments: INSTILL 1 DROP IN BOTH EYES AT BEDTIME mecobalamin (vitamin B12) 1,000 mcg tablet,chewable 1,000 mcg PO DAILY levothyroxine 75 mcg tablet 75 mcg PO DAILY Qty: 90 4RF Discontinued polyethylene glycol 3350 17 gram/dose powder 238 g PO ONCE Qty: 238 0RF Rx Instructions: take per colonoscopy instructions bisacodyl [Dulcolax (bisacodyl)] 5 mg tablet,delayed release (DR/EC) 5 mg PO ONCE Qty: 4 0RF Rx Instructions: take per colonoscopy instructions No Action sertraline 50 mg tablet 50 mg PO HS Rx Instructions: Take 1/2 tab daily x7 days, then take 1 full tab daily Discharge Instructions Instructions: Diverticulosis Additional Instructions: Donna, We were able to complete your colonoscopy today without any difficulty. Your prep was excellent, and I could see everything fine. I did not see any signs of tumors or polyps anywhere along the length of your colon. Incidentally, you do have some diverticulosis. Diverticula are little weak spots in the muscular part of the colon wall, this causes the inside lining to approach outward through it. This can get inflamed, during flareups that we refer to as diverticulitis. On those occasions, patients usually have pretty significant pain, usually across the left lower, or middle portion of their abdomen. Patients usually feel quite ill when this happens. I will attach a little bit of information here about general approaches to diverticular disease. Hopefully, years will never bother you. With a negative screening colonoscopy today, your next scheduled colonoscopy would be when you turn 88. The most modern recommendation suggest that there is probably not much benefit to screening colonoscopy, beyond age 85. I would encourage you to have this conversation with her primary care physician over the years to come. Certainly, you are in excellent shape, and if you follow-up to another colonoscopy at that point, it may be reasonable. Alternatively, if you prefer this to be your last one, I can certainly understand and respect that decision as well. If you have any questions at all, please do not hesitate to ask me at any time. 1. If tolerated, consume a soft, low fiber diet for 1-2 days. 2[address] Do not drive, drink alcohol, operate machinery, make critical decisions, or do activities that require coordination or balance for 24 hours. 3. Because air was put into your colon during the procedure, expelling air from your rectum (passing gas or farting) is normal. 4. You may not have a bowel movement for 1-3 days because of the colonoscopy prep. This is normal. 5. Go directly to the emergency room if you notice any of the following: Develop chills (warm to touch), or if you have a thermometer and your temperature is above 101 Difficulty breathing or difficultly swallowing Persistent vomiting Severe abdominal pain, other than gas cramps Severe chest pain Black, tarry stools Any bleeding ? exceeding one tablespoon 6. Call your physician if the site where your intravenous was started becomes red, swollen, painful, and warm to touch. 7. Your physician has reviewed your pre-procedure medications. Please continue to take those medications as previously ordered. You will be given specific information/education regarding any changes to your medications before leaving. Activity:: Activity as Tolerated Diet:: As Tolerated Discharge Orders Discharge Orders: Discharge Order (Routine); Ordered 12/20/23 Ordered By: Yandel Melendrez DS: Diagnosis Discharge Diagnosis (1) Encounter for screening colonoscopy: Status: Acute Asessment and Plan: Diverticulosis; otherwise negative screening colonoscopy
--- NOTE | 2023-12-20 15:37 | W.COLOREPORT ---
Date of service: 12/21/23 Time of Service: 08:39 Colonoscopy Report Date of procedure: 12/21/23 Pre-op diagnosis general: screening colonoscopy Post-op diagnosis procedure note: other (Diverticulosis) Procedure: colonoscopy Surgeon: Yandel Melendrez Anesthesia Type: General:No Airway Estimated blood loss (mL): 0 Pathology: none sent Complications: None Disposition: same day Indications: Donna is an 83 year old woman who is due for her next screening colonoscopy Prep: Miralax/Dulcolax Procedure Start Time: 08:14 Procedure End Time: 08:32 Retraction Time: 7 Findings: Sigmoid diverticulosis Procedure Description: After the induction of anesthesia, and with the patient in left lateral decubitus position, I began by performing an external anorectal exam.? Perineum and skin were normal, as was the anal verge.? There was no evidence of external hemorrhoids.? Next, I performed a digital rectal exam.? I did not appreciate any abnormal findings.? Next, I advanced a colonoscope into the rectal vault.? I performed retroflexion.? This appeared normal.? Using insufflation, I then advanced the colonoscope beyond the rectal folds and into the sigmoid colon before advancing towards the cecum.? The quality of the prep was outstanding.? There is sigmoid diverticulosis. The scope was noted to be in the cecum by identification of the ileocecal valve and appendiceal orifice.? I then began withdrawing the colonoscope using repeated irrigation as necessary for full evaluation of the colonic mucosa. ?Once the scope was withdrawn to the level of the rectum, great care was taken to examine portions of the rectal folds. I did not see any signs of tumors or polyps during this procedure.? Finally, the scope was withdrawn and the patient was brought to the same-day surgery recovery unit as the anesthetic wore off. ?The findings and instructions were shared with the patient prior to discharge. Madison Bowel Prep Madison Bowel Prep Right Colon: 3 Left Colon: 3 Transverse Colon: 3 Total Score: 9
--- NOTE | 2023-12-21 06:25 | ANES.PREOP_ITS ---
General Info Date of Service Date Performed: 12/21/23 Height: 5 ft 4 in Weight: 55.338 kg Body Mass Index (BMI): 20.9 Surgical Procedure: Operation Date: 12/21/23 09:05 Proposed Procedure Side Surgeon jaky Melendrez MD Meds Allergies and Home Medications Allergies Allergy/AdvReac Type Severity Reaction Status Date / Time epinephrine AdvReac Intermediate Tachycardia Verified 12/21/23 07:46 versed Allergy Severe Other (See Uncoded 12/21/23 07:46 Comment) Home Medication ?Medication ?Instructions ?Recorded acetaminophen 500 mg capsule 500 mg PO Q6H PRN 03/06/20 calcium 600 mg (as 1 tab PO DAILY 03/06/20 carbonate)-vitamin D3 10 mcg (400 unit) tablet ibuprofen 200 mg capsule 200 - 400 mg PO Q6H PRN 03/06/20 latanoprost 0.005 % eye drops 1 drp ophthalmic (eye) DAILY 10/04/21 afothjyx-ayawbox-wulp-lutein tablet 1 tab PO DAILY 10/04/21 levothyroxine 75 mcg tablet 75 mcg PO DAILY #90 tabs 03/24/23 aspirin 81 mg tablet,delayed 81 mg PO DAILY #90 tabs 07/30/23 release atorvastatin 40 mg tablet 40 mg PO QHS #90 tabs 07/30/23 mecobalamin (vitamin B12) 1,000 1,000 mcg PO DAILY 12/01/23 mcg chewable tablet sertraline 50 mg tablet 50 mg PO HS 12/21/23 Current Visit Medications: Current Medications Generic Name Dose Route Start Last Admin Trade Name Freq PRN Reason Stop Dose Admin Hyoscyamine Sulfate 0.125 mg 12/20/23 15:38 Hyoscyamine 0.125 Mg Sl/Oral/Chew SL 01/19/24 15:37 DIRECTED PRN Ringer's Solution 500 mls @ 80 mls/hr 12/21/23 06:00 IV 12/21/23 23:59 INFUSION FRANKLIN IV Miscellaneous Supplies 1 each 12/21/23 06:00 Iv Access IV 12/21/23 23:59 DIRECTED FRANKLIN Ondansetron HCl 4 mg 12/20/23 15:38 Ondansetron 4 Mg/2 Ml Vial IVP 01/19/24 15:37 Q4H PRN PRN Nausea / Vomiting Sodium Chloride 0 ml 12/21/23 06:00 Normal Saline Flush 10 Ml Syr IV 12/21/23 23:59 PRN PRN Sodium Chloride 0 ml 12/21/23 06:00 Normal Saline 10 Ml Vial IJ 12/21/23 23:59 DIRECTED PRN Sterile Water 0 ml 12/21/23 06:00 Water,Injection,Sterile 10 Ml Vial IJ 12/21/23 23:59 DIRECTED PRN PFSH Active Problems Active Problems: Problem Status Onset Code Encounter for screening colonoscopy Acute Z12.11 Hemorrhoid Acute K64.9 Transient ischemic attack Acute G45.9 Yellow eyes Acute R17 Macrocytosis Acute D75.89 Fatigue Acute R53.83 Epigastric pain Acute R10.13 GERD (gastroesophageal reflux disease) Chronic K21.9 Unsteady gait Acute R26.81 Neck pain Acute M54.2 Balance disorder Acute R26.89 Light headedness Acute R42 History of basal cell carcinoma (BCC) Acute Z85.828 DNR (do not resuscitate) Acute Z66 Advanced directives, counseling/discussion Acute Z71.89 Glaucoma Chronic H40.9 Anxiety and depression Chronic F41.9, F32.9 Osteopenia Acute M85.80 Lumbosacral spondylosis without myelopathy Acute M47.817 H/O: stroke Chronic ~05/2014 Z86.73 Epicondylitis, lateral, left Acute ~03/16/19 M77.12 Block, bundle branch, left Acute ~03/16/19 I44.7 Vitamin D deficiency Acute E55.9 Hyperlipidemia Acute E78.5 Hypothyroidism Chronic E03.9 Medical History Medical History (Updated 12/20/23 @ 15:33 by Yandel Melendrez MD) Vitamin B deficiency Colon cancer screening Dyspnea on exertion Dehydration after exertion Encounter for screening for other viral diseases Rib pain on right side Abdominal pain, RUQ Hyperglycemia Insomnia due to stress Medical History Comments:: Pt. states i go down hard, they had to Narcan me when they gave be versed and Demerol Surgical History Surgical History History of esophagogastroduodenoscopy (EGD) (~08/06/22) Anderson /with biopsies History of colonoscopy Tobacco Smoking/Tobacco Use Status: Never Passive smoking exposure: Yes Second hand exposure: Yes Alcohol Alcohol Intake: current Alcohol intake frequency: a few times a week Alcohol type: wine and hard liquor Substance Use Substance use: Never Substance use type: does not use Vital Signs and Lab Results Vital Signs Most Recent Vital Signs in EMR: Temp Pulse Resp BP Pulse Ox 36.2 C L 65 16 128/70 99 12/21/23 07:35 12/21/23 07:35 12/21/23 07:35 12/21/23 07:35 12/21/23 07:35 Lab Results Blood Type / Crossmatch: No Data to Display Complete Blood Count: No Data to Display Complete Metabolic Panel: No Data to Display Liver Function Panel: No Data to Display Coagulation Panel: No Data to Display Cardiac Panel: No Data to Display Arterial Blood Gas: No Data to Display Venous Blood Gas: No Data to Display Pancreas Panel: No Data to Display Thyroid Panel: No Data to Display Infectious Disease: No Data to Display Blood Cultures: No Data to Display Toxicology Panel: No Data to Display Imaging and Studies Imaging and Studies Study information below may be from another EMR and interpreted by another provider. Please see original notes in EMR for more complete details. EKG Summary: 07/30/23 Conclusion Sinus rhythm...normal P axis, V-rate 50- 99 Left bundle branch block...QRSd>120, broad/notched R 06/17/21: Exam: Resting ECG Reason for Exam: shortness of breath Patient Location: E HR:63 bpm ECG Measurements Heart Rate 63 AXIS CO 189 P 44 QRSd 148 QRS 31 QT 440 T60 QTc 450 Conclusion Sinus rhythm...normal P axis, V-rate 60- 99 Left bundle branch block...QRSd>120, broad/notched R Stress Test Summary: 10/01/21: Stress ECG Conclusion 1. The resting electrocardiogram showed a left bundle branch block. 2. Patient underwent a combination of testing with low-level exercise and pharmacologic stress with regadenoson 3. The electrocardiographic portion of the test was nondiagnostic due to resting EKG abnormalities 4. Peak heart rate achieved was 90% of predicted for age 5. See MPI report Stress Test Summary [id number]/78 1 min post Lexiscan [id number] 3 min post Lexiscan [id number]/62 6 min post Lexiscan [id number]/60 9 min post Lexiscan [id number]/64 Patient tolerated test well. MPI Conclusion Myocardial perfusion is normal without evidence of ischemia or prior infarction EF 70%, normal wall motion Radiologist Interpretation Radiologist agrees with Medical Videographer's Interpretation. Radiologist Interpretation by: Rowan Romero MD Interpretation Date/Time: 10/01/2021 16:35:40 Carotid Artery Summary:: IMPRESSION: No evidence for hemodynamically significant carotid stenosis. 07/31/23 Anesthesia Assessment and Plan Anesthesia History Personal History: Delayed Emergence Family History: No Family History of Anesthesia Complications Exercise Tolerance Exercise Tolerance: Metabolic Equivalents>4 Pertinent Negatives Pertinent Negatives: No Major Cardiovascular Symptoms or Complaints and No Major Pulmonary Symptoms or Complaints Cardiac & Pulmonary Exam Cardiac Exam: Normal S1/S2 Heart Sounds Pulmonary Exam: Clear Bilateral Breath Sounds Implantable Cardiac Device Does patient have a Pacemaker or an ICD?: No Airway Exam Known Difficult Airway: No Mallampati Class: 1 Mouth Opening: Normal (> 3cm) Thyromental Distance: Greater than 3 cm Neck Range of Motion: Full ROM Neck Circumference: Normal Teeth Condition: Normal Dentition ASA Classification ASA Score: ASA 2 Emergency Case?: No NPO Status NPO Status: NPO Clears >2 hours, Solids >8 hours Anesthesia Plan Resuscitation Status: Full Code Anesthesia Technique: General Anesthesia Airway Planned: Natural Airway Monitors Used: Standard Monitors
[2023-12-21 06:30] VITALS: BMI 20.9
[2023-12-21 07:35] VITALS: BP 128/70; PULSE 65; RESP 16; TEMP 36.2; O2SAT 99
[2023-12-21] MEDS: Lactated Ringers 500 ML 80 ML IV (08:00)
[2023-12-21 08:37] VITALS: BP 111/54; PULSE 72; RESP 16; TEMP 35.9; O2SAT 100
--- NOTE | 2023-12-21 09:07 | W.ANESPOSTOP ---
Postoperative Evaluation Date, Time and Location Date Performed: 12/21/23 Time Performed: 08:40 Patient Location: Day Surgery Unit Vital Signs Most Recent Imported Vital Signs: Most Recent Vital Signs Temp Pulse Resp BP Pulse Ox 35.9 C L 72 16 111/54 L 100 12/21/23 08:37 12/21/23 08:37 12/21/23 08:37 12/21/23 08:37 12/21/23 08:37 Pain Score Most Recent Pain Score: Most Recent Pain Score Pain Level 0 12/21/23 08:37 Assessment Mental Status: Awake (Alert & Oriented to Patient Baseline) Airway and Respiratory Function: Patent airway with normal (patient baseline) respiratory exam Cardiovascular Function: Hemodynamically Stable Hydration Status: Adequately Hydrated Nausea & Vomiting: No Nausea or Vomiting Pain: Pt. Denies Any Pain Peripheral Nerve Block: Patient did not receive a nerve block
[2023-12-21 09:10] VITALS: BP 114/64; PULSE 64; RESP 18; TEMP 36.1; O2SAT 98
== END 2023-12-21 09:32 | disposition home or self-care (01) ==
LOC: SUR 07:30
PROVIDERS: PCP Nurse Practitioner Family; Visit Provider Surgery
PROC: 0DJD8ZZ Inspection of Lower Intestinal Tract, Via Natural or Artificial Opening Endoscopic (ICD-10-PCS; CPT 45378; principal; 2023-12-21 09:00)
DX: Z12.11 Encounter for screening for malignant neoplasm of colon (principal); Z80.49 Family history of malignant neoplasm of other genital organs; K64.9 Unspecified hemorrhoids
CPT/HCPCS: G0121; G0105; J2704

== ENCOUNTER 2024-01-04 09:19 | Emergency (ER) | payer MEDICARE, SELFPAY ==
[2024-01-04] VITALS (10 sets, daily range): BP systolic 114–134; BP diastolic 48–80; PULSE 62–124; RESP 10–23; TEMP 36.4; O2SAT 92–100
--- NOTE | 2024-01-04 09:15 | DI.MRI_ITS ---
Exam(s) MR BRAIN WO EXAM: MR BRAIN WO CLINICAL HISTORY: speech difficulty TECHNIQUE: Multiplanar multisequence MRI of the brain was performed. COMPARISON: MR MR BRAIN WO from 06/13/2022 FINDINGS: VENTRICLES AND EXTRA AXIAL SPACES: Normal in size and morphology for the patient's age. MIDLINE SHIFT: None. CEREBRAL PARENCHYMA: No focus of restricted diffusion to suggest acute infarct. No space-occupying le reina identified. Mild atrophy consistent with the patient's age. No significant high signal in the w mohamud matter. BRAINSTEM/CEREBELLUM: Normal. VISUALIZED PARANASAL SINUSES: Clear. MASTOIDS:Clear. Vasculature: Normal flow void. PITUITARY GLAND: Unremarkable. ORBITS: Unremarkable. IMPRESSION: Unremarkable MRI of the brain. DATA REPOSITORY:
--- NOTE | 2024-01-04 09:15 | RT.EKG_ITS ---
APPROVED REPORT Exam: Resting ECG Reason for Exam: Stroke Patient Location: E HR:65 bpm ECG Measurements Heart Rate [address] 182 P 56 QRSd 141 QRS 39 QT 433 T 55 QTc 452 Conclusion Sinus rhythm 65 normal axis LBBB no stemi
[2024-01-04 09:34] LABS: Abs Immature Grans 0.05 10^3/uL (0.0-0.06); Absolute Basophil Count 0.02 10^3/uL (0.0-0.2); Absolute Eosinophil Count 0.01 10^3/uL (0.0-0.7); Absolute Lymphocyte Count 2.15 10^3/uL (1.2-3.4); Absolute Monocyte Count 0.62 10^3/uL (0.1-0.8); Absolute Neutrophil Count 1.35 10^3/uL (1.2-6.7); Basophils % 0.5 %; Eosinophils % 0.2 %; HCT 38.5 % (36.0-46.0); HGB 12.6 g/dL (11.2-15.7); Immature Grans % 1.2 %; Lymphocytes % 51.2 %; MCHC 32.7 % (32.0-36.0); MCV 95 fL (80-95); MPV 10.6 fL (8.0-11.0); Monocytes % 14.8 %; Neutrophils % 32.1 %; Platelet Count 181 10^3/uL (130-400); RBC 4.07 10^6/uL (3.93-5.22); RDW-SD 41.7 fL
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
[2024-01-04 10:11] LABS: ALT 23 U/L (14-59); AST 25 U/L (15-37); Albumin 3.7 g/dL (3.4-5.0); Alkaline Phosphatase 63 U/L (46-116); Anion Gap 10.8 mmol/L (3-11); BUN 15 mg/dL (7-18); Bilirubin, Total 0.36 mg/dL (0.2-1.0); CO2 25.2 mmol/L (21.0-32.0); CREATININE 1.1 mg/dL (0.55-1.02); Calcium 9.5 mg/dL (8.5-10.1); Chloride 106 mmol/L (98-107); Estimated GFR 50.48 (mL/min/1.73m2); Glucose 124 mg/dL (74-106); Potassium 4.3 mmol/L (3.5-5.1); Sodium 142 mmol/L (136-145); Total Protein 7.7 g/dL (6.4-8.2)
[2024-01-04 10:15] LABS: Troponin I < 4 ng/L (<or=51)
== END 2024-01-04 10:57 | disposition home or self-care (01) ==
PROVIDERS: Emergency Provider Emergency Medicine; PCP Nurse Practitioner Family
DX: R47.1 Dysarthria and anarthria (principal); I44.7 Left bundle-branch block, unspecified; Z79.82 Long term (current) use of aspirin; Z86.73 Personal history of transient ischemic attack (TIA), and cerebral infarction without residual deficits
CPT/HCPCS: 36415; 80053; 82962; 93005; 99284; 70551; 83735; 84484; 85025; 93010

== ENCOUNTER 2024-07-22 13:22 | Emergency (ER) | payer MEDICARE, SELFPAY ==
[2024-07-22] VITALS (11 sets, daily range): BP systolic 88–151; BP diastolic 54–93; PULSE 60–81; RESP 15–25; TEMP 36.4; O2SAT 93–97
--- NOTE | 2024-07-22 13:30 | RT.EKG_ITS ---
APPROVED REPORT Exam: Resting ECG Reason for Exam: weak,dizzy Patient Location: E HR:61 bpm ECG Measurements Heart Rate 61 AXIS MD 189 P 42 QRSd 149 QRS 23 QT 457 T 61 QTc 463 Conclusion Sinus rhythm...normal P axis, V-rate 60- 99 Left bundle branch block...QRSd>120, broad/notched R concordance in lateral leads was present on prior
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
[2024-07-22 14:53] LABS: Abs Immature Grans 0.06 10^3/uL (0.0-0.06); Absolute Basophil Count 0.02 10^3/uL (0.0-0.2); Absolute Eosinophil Count 0.01 10^3/uL (0.0-0.7); Absolute Lymphocyte Count 1.95 10^3/uL (1.2-3.4); Absolute Monocyte Count 0.42 10^3/uL (0.1-0.8); Absolute Neutrophil Count 1.35 10^3/uL (1.2-6.7); Basophils % 0.5 %; Eosinophils % 0.3 %; HGB 13.2 g/dL (11.2-15.7); Immature Grans % 1.6 %; Lymphocytes % 51.2 %; MCH 30.6 pg (27.0-33.0); MCHC 32.2 % (32.0-36.0); MCV 95 fL (80-95); MPV 10.7 fL (8.0-11.0); Neutrophils % 35.4 %; Platelet Count 185 10^3/uL (130-400); RBC 4.31 10^6/uL (3.93-5.22); RDW 12.1 % (11.7-14.6); RDW-SD 42.5 fL; WBC 3.81 10^3/uL (4.4-10.8)
[2024-07-22] MEDS: Lactated Ringers 1,000 ML 1000 ML IV (15:14)
[2024-07-22 15:17] LABS: ALT 24 U/L (14-59); AST 23 U/L (15-37); Albumin 3.9 g/dL (3.4-5.0); Alkaline Phosphatase 62 U/L (46-116); Anion Gap 6.1 mmol/L (3-11); BUN 15 mg/dL (7-18); Bilirubin, Total 0.3 mg/dL (0.2-1.0); CO2 31.9 mmol/L (21.0-32.0); CREATININE 0.9 mg/dL (0.55-1.02); Calcium 9.5 mg/dL (8.5-10.1); Chloride 106 mmol/L (98-107); Estimated GFR 63.83 (mL/min/1.73m2); Glucose 112 mg/dL (74-106); Magnesium 2.3 mg/dL (1.8-2.4); Potassium 3.6 mmol/L (3.5-5.1); Sodium 144 mmol/L (136-145); Total Protein 7.5 g/dL (6.4-8.2); Troponin I 6 ng/L (<or=51)
[2024-07-22 15:21] LABS: Troponin I 5 ng/L (<or=51)
--- NOTE | 2024-07-22 18:04 | ED.PROG_ITS ---
Date of service: 07/22/24 Time of Service: 18:05 Medical Decision Making Patient signed out to me pending reevaluation after IV fluids administered. She says she feels significantly better and is ambulating without any issues. Given reassuring workup and improvement with IV fluids feel she is stable for disch arge and advised to follow-up with her PCP if not improving this week and return precautions given Quality:SDOH Health Related Social Needs: No Data to Display Discharge Plan Disposition Patient Disposition: Home Condition: Stable Discharge Details Clinical Impression: Orthostatic hypotension, Lightheadedness, Acute dehydration Primary Care Provider: Jose J Maddox ED Provider: Cali Mora Home Meds and New Rx's Prescriptions: Continued calcium carbonate-vitamin D3 600 mg(1,500mg) -400 unit tablet 1 tab PO DAILY ibuprofen 200 mg capsule 200 - 400 mg PO Q6H PRN acetaminophen 500 mg capsule 500 mg PO Q6H PRN aspirin 81 mg tablet,delayed release (DR/EC) 81 mg PO DAILY Qty: 90 4RF uzvdedih-fibwzku-mpen-lutein Tablet 1 tab PO DAILY latanoprost 0.005 % drops 1 drp ophthalmic (eye) DAILY Patient Comments: INSTILL 1 DROP IN BOTH EYES AT BEDTIME mecobalamin (vitamin B12) 1,000 mcg tablet,chewable 1,000 mcg PO DAILY atorvastatin 40 mg tablet 40 mg PO QHS Qty: 90 3RF sertraline 50 mg tablet 50 mg PO HS Qty: 90 4RF levothyroxine 75 mcg tablet 75 mcg PO DAILY Qty: 90 4RF Discharge Instructions Instructions: Orthostatic hypotension, Dehydration, Adult ED Additional Instructions: Please drink plenty of fluids to stay hydrated. Rest over the next few days. No exertional activities until cleared by your doctor. Please follow-up with your primary care physician. Return to the emergency department immediately for any worsening or new concerning symptoms. Referrals: Jose J Maddox, ANA [Primary Care Provider] -
== END 2024-07-22 18:32 | disposition home or self-care (01) ==
PROVIDERS: Student in an Organized Health Care Education/Training Program; Emergency Provider Emergency Medicine; PCP Nurse Practitioner Family
DX: R42 Dizziness and giddiness (principal); R26.81 Unsteadiness on feet; I44.7 Left bundle-branch block, unspecified; Z86.73 Personal history of transient ischemic attack (TIA), and cerebral infarction without residual deficits; Z79.82 Long term (current) use of aspirin
CPT/HCPCS: 00123; 80053; 82962; 93005; 96360; 96361; 99284; 83735; 84484; 85025; 93010

== ENCOUNTER 2024-10-19 17:40 | Outpatient (REF) | payer MEDICARE, SELFPAY ==
[2024-10-19 13:41] LABS: Hemoglobin A1C 5.5 % (<5.7)
[2024-10-19 13:50] LABS: Calculated LDL 49 mg/dL (<100); Cholesterol 135 mg/dL (<200); HDL Cholesterol 76 mg/dL (>or=50); TSH (W/Ref FT4) 0.49 uIU/mL (0.36-3.74); Triglyceride 54 mg/dL (<150)
== END 2024-10-19 17:41 | disposition home or self-care (01) ==
LOC: NCHCN 17:40
PROVIDERS: PCP Nurse Practitioner Family; Visit Provider Nurse Practitioner Family
DX: E03.9 Hypothyroidism, unspecified (principal); E78.5 Hyperlipidemia, unspecified; R73.9 Hyperglycemia, unspecified
CPT/HCPCS: 80061; 83036; 84443

== ENCOUNTER 2024-11-10 04:05 | Outpatient (CLI) | payer MEDICARE, SELFPAY ==
--- NOTE | 2024-11-10 05:57 | DI.MAMMO_ITS ---
Exam(s) MAMMO SCREENING EXAM: MAMMO SCREENING CLINICAL HISTORY: screening,Z12.39 TECHNIQUE: Bilateral full field digital CC and MLO mammographic images were obtained with 3D tomosynthesis and utilizing computer aided detection (CAD). COMPARISON: Comparison is made with prior examinations. FINDINGS: Masses/Architectural Distortion: No suspicious masses or areas of architectural distortion are present. Microcalcifications: No suspicious pleomorphic-type are seen. Skin Thickening/Nipple Retraction: None. IMPRESSION: 1. No significant interval change with no specific features of malignancy noted. 2. Unless there is more urgent need, screening mammography is recommended, as per [place] [employer] guidelines. BI-RADS Category 1 - Negative Breast Density - Category C - The breast are heterogeneously dense, which may obscure small masses. Breast density Category C or D implies that the patient has dense breast tissue. Dense breast tissue can make it harder to find cancer on a mammogram. Dense breast tissue is also associated with an increased risk of breast cancer. This information about the result of the mammogram report was provided to the patient to raise their awareness. Use this report when you speak with the patient about their risks for breast cancer, which includes their family history. At that time, you may recommend additional screening tests (Ultrasound or MRI) as these tests may add significant information. A negative radiographic report should not delay biopsy if a dominant or clinically suspicious mass is present. Up to ten percent of cancers are not identified on mammography. A negative report may reinforce clinical impression. Adenosis and dense breasts may obscure an underlying neoplasm. False positive reports average 6 to 10%. Patient will receive a letter notifying them of these results.
== END 2024-11-10 04:25 ==
PROVIDERS: PCP Nurse Practitioner Family; Visit Provider Nurse Practitioner Family
DX: Z12.31 Encounter for screening mammogram for malignant neoplasm of breast (principal); E78.5 Hyperlipidemia, unspecified
CPT/HCPCS: 77063; 77067